=== PATIENT | male | born 1965 ===

== ENCOUNTER 2022-03-28 06:23 | Day surgery (SDC) | payer OTHER ==
[2022-03-26 10:12] VITALS: BMI 28.2
[2022-03-28] MEDS ORDERED: ONDANSETRON 4 MG/2 ML VIAL IVPUSH PRN (13:20)
[2022-03-28] MEDS ORDERED: oxyCODONE HCL 5 MG TABLET PO PRN (13:20)
[2022-03-28] MEDS ORDERED: PROPOFOL 20 ML ONE ×2 (13:35→13:59)
[2022-03-28] MEDS ORDERED: MIDAZOLAM HCL 2 MG/2 ML SINGLE DOSE VIAL ONE (13:35)
[2022-03-28] MEDS ORDERED: LIDOCAINE HCL/PF 2% SDV 5ML VIAL ONE (13:38)
[2022-03-28] MEDS ORDERED: ceFAZolin SODIUM 1 GM VIAL ONE (13:58)
[2022-03-28] MEDS ORDERED: ceFAZolin SODIUM 1 GM VIAL IVPB ONE (14:00)
[2022-03-28] MEDS ORDERED: ELECTROLYTE-148 SOLN 1,000 ML IV SCH (14:00)
[2022-03-28] MEDS ORDERED: KETOROLAC TROMETHAMINE 30 MG/1 ML VIAL ONE (14:24)
[2022-03-28 16:09] VITALS: RESP 16
[2022-03-28 16:57] VITALS: BP 129/78; PULSE 60; TEMP 97.7
== END 2022-03-28 16:49 | disposition home or self-care (01) ==
LOC: JASU-SURG 06:23
PROVIDERS: ATTEND Urology
PROC: 0TND8ZZ Release Urethra, Via Natural or Artificial Opening Endoscopic (ICD-10-PCS; principal; 2022-03-28 13:30)
DX: N35.913 Unspecified membranous urethral stricture, male (principal)
CPT/HCPCS: 94760

== ENCOUNTER 2022-03-31 05:16 | Emergency (ER) | payer OTHER ==
[2022-03-31 05:33] VITALS: PULSE 70; RESP 20; BMI 28.2
[2022-03-31 06:30] VITALS: BP 123/78
[2022-03-31 06:31] VITALS: TEMP 98.8
== END 2022-03-31 06:44 | disposition home or self-care (01) ==
LOC: JER 05:16
DX: T83.091A Other mechanical complication of indwelling urethral catheter, initial encounter (principal)
CPT/HCPCS: 99281-25

== ENCOUNTER 2024-05-19 04:22 | Day surgery (SDC) | payer OTHER ==
[2024-05-15 16:28] VITALS: BMI 29.0
[2024-05-19] MEDS ORDERED: PROPOFOL 20 ML ONE (12:01)
[2024-05-19] MEDS ORDERED: MIDAZOLAM HCL 2 MG/2 ML SINGLE DOSE VIAL ONE (12:02)
[2024-05-19] MEDS: ceFAZolin SODIUM 1 GM VIAL IVPB ONE (12:42)
[2024-05-19] MEDS ORDERED: ONDANSETRON 4 MG/2 ML VIAL ONE (12:43)
[2024-05-19] MEDS ORDERED: DEXAMETHASONE SOD PHOSPHATE 4 MG/1 ML VIAL ONE (12:43)
[2024-05-19] MEDS ORDERED: ceFAZolin SODIUM 1 GM VIAL ONE (12:48)
[2024-05-19] MEDS ORDERED: ELECTROLYTE-148 SOLN 1,000 ML IV SCH (13:00)
[2024-05-19] MEDS ORDERED: oxyCODONE HCL 5 MG TABLET PO PRN (13:07)
[2024-05-19] MEDS ORDERED: ONDANSETRON 4 MG/2 ML VIAL IVPUSH PRN (13:07)
[2024-05-19] MEDS ORDERED: LACTATED RINGERS SOLUTION 1,000 ML IV SCH (13:15)
[2024-05-19] MEDS ORDERED: ACETAMINOPHEN INJECTION 100 ML ONE (13:23)
[2024-05-19] MEDS: ACETAMINOPHEN 1000 MG/100 ML BAG IVPB ONE (13:33)
[2024-05-19 15:20] VITALS: RESP 18
[2024-05-19 15:44] VITALS: BP 126/83; PULSE 63; TEMP 97.1
== END 2024-05-19 15:40 | disposition home or self-care (01) ==
LOC: JASU-SURG 04:22
PROVIDERS: ATTEND Urology
PROC: 0T7D8ZZ Dilation of Urethra, Via Natural or Artificial Opening Endoscopic (ICD-10-PCS; principal; 2024-05-19 12:00)
DX: N35.919 Unspecified urethral stricture, male, unspecified site (principal)
CPT/HCPCS: 94760; J0131